=== PATIENT | female | born 1970 | race Two or more races ===

== ENCOUNTER → 2017-09-12 | Emergency (ER) | payer OTHER ==
[~2017-09-12] VITALS: Ht 162.6 cm; Wt 79.4 kg
== END | disposition home or self-care (01) ==
LOC: ER 07:44
DX: S60.021A Contusion of right index finger without damage to nail, initial encounter (principal); W23.0XXA Caught, crushed, jammed, or pinched between moving objects, initial encounter; Y93.89 Activity, other specified; Y92.230 Patient room in hospital as the place of occurrence of the external cause; Y99.8 Other external cause status